=== PATIENT | female | born 1990 | race Caucasian/White ===

== ENCOUNTER 2018-11-09 20:10 | Emergency (ER) | payer SELFPAY ==
[2018-11-09] MEDS ORDERED: HYDROCODONE/ACETAMINOPHEN 5-325 MG (6 TAB/ER DISP) PO PRN (23:27)
[2018-11-09] MEDS ORDERED: PENICILLIN V POTASSIUM 500 MG TABLET PO ONE (23:27)
--- NOTE | 2018-11-09 23:29 | ER Document Report ---
HPI - HPI Patient complains to provider of: Dental pain Time Seen by Provider: 11/09/18 23:21 Onset/Duration: Persistent Quality of pain: Achy Pain Level: 5 Context: Patient complains of dental pain from a broken tooth for the past 2 weeks. Patient denies any fever or facial swelling. Associated Symptoms: Other - Dental pain. denies: Fever Exacerbated by: Denies Relieved by: Denies Similar symptoms previously: Yes Recently seen / treated by doctor: No - ROS ROS below otherwise negative: Yes Systems Reviewed and Negative: Yes All other systems reviewed and negative - CONSTITUTIONAL Constitutional: DENIES: Fever, Chills - EENT Notes: Toothache - GASTROINTESTINAL Gastrointestinal: DENIES: Nausea, Patient vomiting - REPRODUCTIVE Reproductive: DENIES: : - MUSCULOSKELETAL Musculoskeletal: DENIES: Back Pain, Neck Pain - DERM Skin Color: Normal Skin Problems: None Past Medical History - General Information source: Patient - Social History Smoking Status: Never Smoker Frequency of alcohol use: None Drug Abuse: None Occupation: Call center Family History: Reviewed & Not Pertinent Patient has suicidal ideation: No Patient has homicidal ideation: No - Medical History Medical History: Negative Renal/ Medical History: Denies: Hx Peritoneal Dialysis Surgical Hx: Negative Vertical Provider Document - CONSTITUTIONAL Agree With Documented VS: Yes Exam Limitations: No Limitations General Appearance: WD/WN, No Apparent Distress - INFECTION CONTROL TRAVEL OUTSIDE OF THE [place] IN LAST 30 DAYS: No - HEENT HEENT: Atraumatic, Normocephalic Mouth Diagram: 1 - Dental fracture, tenderness, no gingival abscess, no trismus - NECK Neck: Normal Inspection, Supple. negative: Lymphadenopathy-Left, Lymphadenopathy-Right - RESPIRATORY Respiratory: Breath Sounds Normal, No Respiratory Distress - CARDIOVASCULAR Cardiovascular: Regular Rate, Regular Rhythm - BACK Back: Normal Inspection - MUSCULOSKELETAL/EXTREMETIES Musculoskeletal/Extremeties: MAEW - NEURO Level of Consciousness: Awake, Alert, Appropriate Motor/Sensory: No Motor Deficit - DERM Integumentary: Warm, Dry, No Rash Course - Vital Signs Vital signs: Temp Pulse Resp BP Pulse Ox 98.4 F 69 16 129/87 H 100 11/09/18 20:24 11/09/18 20:24 11/09/18 20:24 11/09/18 20:24 11/09/18 20:24 Discharge - Discharge Clinical Impression: Toothache Condition: Stable Disposition: HOME, SELF-CARE Instructions: Dentist, Oral Narcotic Medication ([facility]), Penicillin V K ([facility]), Toothache ([facility]) Additional Instructions: Return immediately for any new or worsening symptoms Followup with a dental care provider, call tomorrow to make a followup appointment Prescriptions: Naproxen [Naprosyn 250 Nmg Tablet] 1 tab PO BID #14 tablet Penicillin V Potassium [Penicillin Vk 500 mg Tablet] 500 mg PO BID #20 tablet Referrals: [facility] [Provider Group] - Follow up as needed
[2018-11-09 23:41] VITALS: BP 119/88
== END 2018-11-09 23:43 | disposition home or self-care (01) ==
LOC: ER 20:10
DX: K08.89 Other specified disorders of teeth and supporting structures (principal)
CPT/HCPCS: 99282

== ENCOUNTER 2019-05-07 17:59 | Emergency (ER) | payer SELFPAY ==
[2019-05-07] MEDS ORDERED: DICYCLOMINE HCL INJ 20 MG/2 ML AMPULE IM ONE (18:30)
[2019-05-07] MEDS ORDERED: ONDANSETRON 4 MG TAB.RAPDIS PO ONE (18:30)
--- NOTE | 2019-05-07 18:33 | ER Document Report ---
ED Medical Screen (RME) - General Chief Complaint: Abdominal Cramping Stated Complaint: CHEST PAIN Time Seen by Provider: 05/07/19 18:23 Notes: Patient is a 28-year-old female who presents to the emergency department with a chief complaint of chest pain and abdominal pain. Patient states on Wednesday she developed chest pain that is located in the center of her chest. She reports that this is sharp in nature. Patient reports she does have a history of the same type of pain but this episode is not as bad. Patient reports nothing makes the pain better or worse. Patient reports nausea without vomiting or diarrhea. Patient reports increased urinary frequency. Patient denies vaginal bleeding or discharge. Patient reports some left lower back pain. Patient also reports left rib pain. Patient reports the abdominal cramping sometimes will be on the right and then sometimes will be on the left and is very nonspecific. TRAVEL OUTSIDE OF THE [place] IN LAST 30 DAYS: No - Related Data Allergies/Adverse Reactions: No Known Allergies Allergy (Verified 05/07/19 18:00) Past Medical History Renal/ Medical History: Denies: Hx Peritoneal Dialysis Physical Exam - Vital signs Vitals: Temp Pulse Resp BP Pulse Ox 99.1 F 60 18 130/84 H 100 05/07/19 18:17 05/07/19 18:17 05/07/19 18:17 05/07/19 18:17 05/07/19 18:17 Interpretation: Normal - Respiratory Respiratory status: No respiratory distress Chest status: Tender - Reproducible chest wall tenderness Breath sounds: Normal Chest palpation: Normal - Cardiovascular Rhythm: Regular Heart sounds: Normal auscultation, S2 appreciated - Abdominal Inspection: Normal Distension: No distension Bowel sounds: Normal Tenderness: Nontender Organomegaly: No organomegaly Course - Re-evaluation Re-evalutation: 05/07/19 18:32 I have greeted and performed a rapid initial assessment of this patient. A comprehensive ED assessment and evaluation of the patient, analysis of test results and completion of the medical decision making process will be conducted by additional ED providers. - Vital Signs Vital signs: Temp Pulse Resp BP Pulse Ox 99.1 F 60 18 130/84 H 100 05/07/19 18:17 05/07/19 18:17 05/07/19 18:17 05/07/19 18:17 05/07/19 18:17
[2019-05-07 18:52] LABS: ABSOLUTE EOSINOPHILS # (AUTO) 0.1 10^3/uL (0.0-0.6); ABSOLUTE LYMPHOCYTES (AUTO) 2.8 10^3/uL (0.5-4.7); ABSOLUTE MONOCYTES (AUTO) 0.5 10^3/uL (0.1-1.4); ABSOLUTE NEUT (AUTO) 2.7 10^3/uL (1.7-8.2); BASOPHILS % (AUTO) 0.4 % (0-2); EOSINOPHILS % (AUTO) 0.8 % (0-6); HEMATOCRIT 35.7 % (36.0-47.0); LYMPHOCYTES % (AUTO) 46.2 % (13-45); MEAN CORPUSCULAR HEMOGLOBIN 26.4 pg (27.0-33.4); MEAN CORPUSCULAR HGB CONC 33.5 g/dL (32.0-36.0); MEAN CORPUSCULAR VOLUME 79 fl (80-97); MONOCYTES % (AUTO) 7.8 % (3-13); PLATELET COUNT 156 10^3/uL (150-450); RED BLOOD COUNT 4.54 10^6/uL (3.72-5.28); RED CELL DISTRIBUTION WIDTH 15.9 % (11.5-14.0); SEGMENTED NEUTROPHILS % (AUTO) 44.8 % (42-78); TOTAL CELLS COUNTED % (AUTO) 100 %
[2019-05-07 19:00] LABS: APPEARANCE,URINE SLIGHTLY-CLOUDY; BILIRUBIN,URINE NEGATIVE (NEGATIVE); COLOR,URINE YELLOW; GLUCOSE, URINE NEGATIVE (NEGATIVE); KETONES,URINE NEGATIVE (NEGATIVE); LEUKOCYTE ESTERASE,URINE NEGATIVE (NEGATIVE); NITRITE,URINE NEGATIVE (NEGATIVE); PROTEIN,URINE NEGATIVE (NEGATIVE); URINE SPECIFIC GRAVITY 1.016
--- NOTE | 2019-05-07 19:01 | ER Document Report ---
ED General - General Chief Complaint: Abdominal Cramping Stated Complaint: CHEST PAIN Time Seen by Provider: 05/07/19 18:23 Notes: 28-year-old female presents with abdominal pain epigastric radiating to the chest better with food intermittent nausea and 3+ home tests. She is 2 weeks late for her.. She does not believe in the store-bought ones even though she has 3+. TRAVEL OUTSIDE OF THE [place] IN LAST 30 DAYS: No - Related Data Allergies/Adverse Reactions: No Known Allergies Allergy (Verified 05/07/19 18:00) Past Medical History - Social History Smoking Status: Never Smoker Family History: Reviewed & Not Pertinent Renal/ Medical History: Denies: Hx Peritoneal Dialysis Review of Systems - Review of Systems Notes: REVIEW OF SYSTEMS GEN: Denies fever, chills, weight loss ENT: Denies sore throat, nasal discharge, ear pain EYES: Denies blurry vision, eye pain, discharge CV: Denies chest pain, palpitations, edema RESP: Denies cough, shortness of breath, wheezing GI: See HPI MSK: Denies joint pain/swelling, edema, SKIN: Denies rash, skin lesions LYMPH: Denies swollen glands/lymph nodes NEURO: Denies headache, focal weakness or numbness, dizziness PSYCH: Denies depression, suicidal or homicidal ideation PHYSICAL EXAMINATION General: No acute distress, well-nourished Head: Atraumatic, normocephalic ENT: Mouth normal, oropharynx moist, no exudates or tonsillar enlargement Eyes: Conjunctiva normal, pupils equal, lids normal Neck: No JVD, supple, no guarding CVS: Normal rate, regular rhythm, no murmurs Resp: No resp distress, equal and normal breath sounds bilaterally GI: Nondistended, soft, no tenderness to palpation, no rebound or guarding Ext: No deformities, no edema, normal range of motion in upper and lower ext Back: No CVA or midline TTP Skin: No rash, warm Lymphatic: No lymphadeopathy noted Neuro: Awake, alert. Face symmetric. GCS 15. Physical Exam - Vital signs Vitals: Temp Pulse Resp BP Pulse Ox 99.1 F 60 18 130/84 H 100 05/07/19 18:17 05/07/19 18:17 05/07/19 18:17 05/07/19 18:17 05/07/19 18:17 Course - Vital Signs Vital signs: Temp Pulse Resp BP Pulse Ox 99.1 F 60 18 130/84 H 100 05/07/19 18:17 05/07/19 18:17 05/07/19 18:17 05/07/19 18:17 05/07/19 18:17 05/07/19 18:58 Mild epigastric pain in a patient with missed. Very likely GERD/morning s ickness/nausea vomiting in . Her test here is positive, her abdominal exam is benign her labs are normal. I will start her on vitamins, Pepcid, and she will follow-up with [facility]. I doubt that she has pancreatitis serious liver disease or any chest or pulmonary pathology. I have discussed with the patient there likely diagnosis, aftercare plan, follow-up plans and my usual and customary return precautions. They verbalized understanding of this. - Laboratory Result Diagrams: 05/07/19 18:43 05/07/19 18:43 Laboratory results interpreted by me: 05/07/19 05/07/19 18:43 18:43 Hct 35.7 L MCV 79 L MCH 26.4 L RDW 15.9 H Lymphocytes % 46.2 H Urine HCG, Qual POSITIVE H Discharge - Discharge Clinical Impression: Gastroesophageal reflux Qualifiers: Esophagitis presence: without esophagitis Qualified Code(s): K21.9 - Gastro-e sophageal reflux disease without esophagitis Qualifiers: Weeks of gestation: unspecified Qualified Code(s): Z34.90 - Encounter for supervision of normal , unspecified, unspecified trimester Condition: Good Disposition: HOME, SELF-CARE Instructions: ([facility]) Prescriptions: Famotidine [Pepcid] 20 mg PO BID #30 tablet Referrals: Gynecology [Provider Group] - Follow up as needed
--- NOTE | 2019-05-07 19:03 | RADIOLOGY REPORT (SQ) ---
EXAM DESCRIPTION: CHEST 2 VIEWS COMPLETED DATE/TIME: 05/07/2019 6:54 pm REASON FOR STUDY: chest pain COMPARISON: None. EXAM PARAMETERS: NUMBER OF VIEWS: two views TECHNIQUE: Digital Frontal and Lateral radiographic views of the chest acquired. RADIATION DOSE: NA LIMITATIONS: none FINDINGS: LUNGS AND PLEURA: No opacities, masses or pneumothorax. No pleural effusion. MEDIASTINUM AND HILAR STRUCTURES: No masses or contour abnormalities. HEART AND VASCULAR STRUCTURES: Heart normal size. No evidence for failure. BONES: No acute findings. HARDWARE: None in the chest. OTHER: No other significant finding. IMPRESSION: NO ACUTE RADIOGRAPHIC FINDING IN THE CHEST. TECHNICAL DOCUMENTATION: JOB ID: [id number] [id number] 2010 [employer]- All Rights Reserved Reading location - IP/workstation name: [email or web address]
[2019-05-07 19:06] LABS: ALBUMIN 3.9 g/dL (3.5-5.0); ALKALINE PHOSPHATASE 55 U/L (38-126); ANION GAP 8 (5-19); ASPARTATE AMINO TRANSFERASE 16 U/L (14-36); BILIRUBIN,DIRECT 0.1 mg/dL (0.0-0.4); BILIRUBIN,TOTAL 0.2 mg/dL (0.2-1.3); BLOOD UREA NITROGEN 8 mg/dL (7-20); CALCIUM 8.9 mg/dL (8.4-10.2); CARBON DIOXIDE 25 mmol/L (22-30); CHLORIDE 103 mmol/L (98-107); GLUCOSE 100 mg/dL (75-110); POTASSIUM 4.4 mmol/L (3.6-5.0); TOTAL PROTEIN 7.2 g/dL (6.3-8.2)
[2019-05-07 20:36] VITALS: BP 120/86
--- NOTE | 2019-05-08 00:27 | EKG REPORT ---
SEVERITY:- NORMAL ECG - SINUS RHYTHM : Confirmed by: Birdie Hernandez 08-May-2019 00:27:11
== END 2019-05-07 20:37 | disposition home or self-care (01) ==
LOC: ER 17:59
DX: O99.619 Diseases of the digestive system complicating pregnancy, unspecified trimester (principal); K21.9 Gastro-esophageal reflux disease without esophagitis; O26.899 Other specified pregnancy related conditions, unspecified trimester; R10.9 Unspecified abdominal pain; R07.9 Chest pain, unspecified; R10.13 Epigastric pain; R11.0 Nausea; Z3A.00 Weeks of gestation of pregnancy not specified
CPT/HCPCS: 93005; 36415; 83690; 85025; 81025; 80053; 81001; 84484; 71046; 93010; J0500; S0119; 96372; 99284

== ENCOUNTER → 2019-05-30 | Outpatient (CLI) | payer MEDICAID ==
--- NOTE | 2019-05-30 13:43 | RADIOLOGY REPORT (SQ) ---
EXAM DESCRIPTION: U/S [id number] TRNABD 1GES W/ODOP COMPLETED DATE/TIME: 05/30/2019 1:32 pm REASON FOR STUDY: Z34.01 ENCNTR FOR SUPRVSN OF NORMAL FIRST PREG, FIRST TRIMESTER Z34.01 ENCNTR FOR SUPRVSN OF NORMAL FIRST PREG, FIRST TRIMES COMPARISON: None. TECHNIQUE: Transvaginal and transabdominal static and realtime grayscale images acquired of the pelv is. Additional selected spectral and color Doppler images recorded. All images stored on PACs. CLINICAL AGE: 8 weeks 6 days. bHCG: Not available. LIMITATIONS: None. FINDINGS: UTERUS: No masses. No anomalies. GESTATIONAL SAC: Normal shape. YOLK SAC: No. POLE: None present. RIGHT ADNEXA: Normal ovary with normal vascular flow. No adnexal free fluid. No adnexal masses. LEFT ADNEXA: Normal ovary with normal vascular flow. No adnexal free fluid. No adnexal masses. FREE FLUID: None. OTHER: No other significant finding. IMPRESSION: POSSIBLE EARLY INTRAUTERINE . BHCG LEVEL NOT AVAILABLE FOR CORRELATION WITH US FINDINGS. CONSIDER F/U BHCG AND/OR ULTRASOUND FOR VERIFICATION AND TO EXCLUDE ECTOPIC . Trimester of : First trimester - 0 to 13 weeks. TECHNICAL DOCUMENTATION: JOB ID: [id number] [employer]- All Rights Reserved Reading location - IP/workstation name: [email or web address]
== END ==
LOC: RAD 12:29
PROVIDERS: ATTEND Midwife
DX: Z34.01 Encounter for supervision of normal first pregnancy, first trimester (principal)
CPT/HCPCS: 76801

== ENCOUNTER 2019-06-10 15:12 | Emergency (ER) | payer MEDICAID ==
--- NOTE | 2019-06-10 15:23 | ER Document Report ---
ED Medical Screen (RME) - General Chief Complaint: Vaginal Bleeding Stated Complaint: VAGINAL BLEEDING/ Time Seen by Provider: 06/10/19 15:17 Primary Care Provider: SHANITA GRIMES CNM [Primary Care Provider] - Follow up as needed Mode of Arrival: Ambulatory Information source: Patient Notes: This 28-year-old female G1, P0 approximately 5 weeks presents emergency department after she noticed blood when wiping prior to arrival. Denies trauma. Reports some abdominal cramping on the right side but no cramping at this time. Denies fever vomiting diarrhea. Patient reports she had an ultrasound [facility]. I have greeted and performed a rapid initial assessment of this patient. A comprehensive ED assessment and evaluation of the patient, analysis of test results and completion of the medical decision making process will be conducted by additional ED providers. Dictation of this chart was performed using voice recognition software; therefore, there may be some unintended grammatical errors. TRAVEL OUTSIDE OF THE [place] IN LAST 30 DAYS: No - Related Data Allergies/Adverse Reactions: No Known Allergies Allergy (Verified 05/07/19 18:00) Past Medical History Renal/ Medical History: Denies: Hx Peritoneal Dialysis Physical Exam - Vital signs Vitals: Temp Pulse Resp BP Pulse Ox 98 F 78 14 135/84 H 100 06/10/19 15:19 06/10/19 15:19 06/10/19 15:19 06/10/19 15:19 06/10/19 15:19 Course - Vital Signs Vital signs: Temp Pulse Resp BP Pulse Ox 98 F 78 14 135/84 H 100 06/10/19 15:19 06/10/19 15:19 06/10/19 15:19 06/10/19 15:19 06/10/19 15:19 Doctor's Discharge - Discharge Referrals: SHANITA GRIMES CNM [Primary Care Provider] - Follow up as needed
[2019-06-10 16:01] LABS: ABSOLUTE BASOPHILS # (AUTO) 0.1 10^3/uL (0.0-0.2); ABSOLUTE EOSINOPHILS # (AUTO) 0.1 10^3/uL (0.0-0.6); ABSOLUTE LYMPHOCYTES (AUTO) 2.7 10^3/uL (0.5-4.7); ABSOLUTE MONOCYTES (AUTO) 0.5 10^3/uL (0.1-1.4); ABSOLUTE NEUT (AUTO) 1.8 10^3/uL (1.7-8.2); BASOPHILS % (AUTO) 1.1 % (0-2); EOSINOPHILS % (AUTO) 1.8 % (0-6); HEMATOCRIT 36.6 % (36.0-47.0); HEMOGLOBIN 12.2 g/dL (12.0-15.5); LYMPHOCYTES % (AUTO) 52.3 % (13-45); MEAN CORPUSCULAR HEMOGLOBIN 26.5 pg (27.0-33.4); MEAN CORPUSCULAR HGB CONC 33.5 g/dL (32.0-36.0); MEAN CORPUSCULAR VOLUME 79 fl (80-97); MONOCYTES % (AUTO) 9.9 % (3-13); PLATELET COUNT 142 10^3/uL (150-450); RED BLOOD COUNT 4.61 10^6/uL (3.72-5.28); RED CELL DISTRIBUTION WIDTH 15.7 % (11.5-14.0); SEGMENTED NEUTROPHILS % (AUTO) 34.9 % (42-78); TOTAL CELLS COUNTED % (AUTO) 100 %; WHITE BLOOD COUNT 5.1 10^3/uL (4.0-10.5)
[2019-06-10 16:11] LABS: AMORPHOUS SEDIMENT,URINE TRACE /HPF; APPEARANCE,URINE TURBID; BILIRUBIN,URINE NEGATIVE (NEGATIVE); CALCIUM OXALATE CRYSTALS,URINE MANY /HPF; COLOR,URINE AMBER; GLUCOSE, URINE NEGATIVE (NEGATIVE); KETONES,URINE NEGATIVE (NEGATIVE); LEUKOCYTE ESTERASE,URINE MODERATE (NEGATIVE); NITRITE,URINE NEGATIVE (NEGATIVE); PROTEIN,URINE 100 mg/dL (NEGATIVE); URINE SPECIFIC GRAVITY 1.027
[2019-06-10 16:22] LABS: ALBUMIN 4.2 g/dL (3.5-5.0); ALKALINE PHOSPHATASE 66 U/L (38-126); ANION GAP 9 (5-19); ASPARTATE AMINO TRANSFERASE 19 U/L (14-36); BILIRUBIN,TOTAL 0.3 mg/dL (0.2-1.3); BLOOD UREA NITROGEN 8 mg/dL (7-20); CALCIUM 9.6 mg/dL (8.4-10.2); CARBON DIOXIDE 25 mmol/L (22-30); CHLORIDE 104 mmol/L (98-107); GLUCOSE 102 mg/dL (75-110); POTASSIUM 3.9 mmol/L (3.6-5.0)
--- NOTE | 2019-06-10 16:23 | RADIOLOGY REPORT (SQ) ---
EXAM DESCRIPTION: U/S OB TRANSVAGINAL W/O DOP COMPLETED DATE/TIME: 06/10/2019 4:07 pm REASON FOR STUDY: PREG BLEEDING ABD CRAMP COMPARISON: 05/30/2019 TECHNIQUE: Transvaginal static and realtime grayscale images acquired of the pelvis. Additional pearl cted spectral and color Doppler images recorded. All images stored on PACs. bHCG: Pending. CLINICAL DATES: 10 weeks 4 days LIMITATIONS: None. FINDINGS: There is an intrauterine measuring 6 weeks 0 days, no yolk sac or heart to chery are identified. SUBCHORIONIC BLEED: No. SIZE OF BLEED: Not applicable. UTERUS: No masses. No anomalies. CERVICAL LENGTH: 2.8 cm Fluid is noted in the cervical canal. RIGHT ADNEXA: Normal ovary with normal vascular flow. No adnexal free fluid. No adnexal masses. LEFT ADNEXA: Normal ovary with normal vascular flow. No adnexal free fluid. No adnexal masses. FREE FLUID: None. OTHER: No other significant finding. IMPRESSION: There is an intrauterine measuring 6 weeks 0 days, no yolk sac or heart tones are identified suggesting demise.Fluid is noted in the cervical canal. Trimester of : First trimester - 0 to 13 weeks. TECHNICAL DOCUMENTATION: JOB ID: [id number] [place]-72 2010 [employer]- All Rights Reserved rev Reading location - IP/workstation name: [email or web address]
--- NOTE | 2019-06-10 16:33 | ER Document Report ---
ED General - General Chief Complaint: Vaginal Bleeding Stated Complaint: VAGINAL BLEEDING/ Time Seen by Provider: 06/10/19 15:17 Primary Care Provider: SULEIMAN MILLAN MD [ACTIVE STAFF] - 06/12/19 (CALL THE OFFICE AND LET THEM KNOW THAT Dr. MILLAN WANTS TO SEE YOU WEDNESDAY. ) Mode of Arrival: Ambulatory TRAVEL OUTSIDE OF THE [place] IN LAST 30 DAYS: No - HPI Notes: 28-year-old female to the emergency department with complaints of lower abdomi nal cramping and vaginal bleeding that began yesterday. She states that she is about 5 weeks . She states that [facility] and [facility]. She states the ultrasound showed a sac but no nicol IUP. She states that at that time her beta quant was 4000. She was told by "nurse there" that they would watch her over the weekend and then see her in follow-up next week. She states that she got concerned when she began to bleed today. This is her first . She denies any nausea, vomiting, fevers or any other complaints. - Related Data Allergies/Adverse Reactions: No Known Allergies Allergy (Verified 05/07/19 18:00) Past Medical History - General Information source: Patient Last Menstrual Period: 03/28/19 - Social History Smoking Status: Never Smoker Chew tobacco use (# tins/day): No Frequency of alcohol use: Rare Drug Abuse: None Family History: Reviewed & Not Pertinent Patient has suicidal ideation: No Patient has homicidal ideation: No Renal/ Medical History: Denies: Hx Peritoneal Dialysis Review of Systems - Review of Systems Constitutional: denies: Chills, Fever EENT: No symptoms reported Cardiovascular: denies: Chest pain, Palpitations, Heart racing, Orthopnea, Dyspnea, Syncope, Dizziness, Lightheaded Respiratory: denies: Cough, Short of breath Gastrointestinal: Abdominal pain. denies: Diarrhea, Nausea, Vomiting Genitourinary: No symptoms reported Female Genitourinary: , Vaginal bleeding Musculoskeletal: No symptoms reported Skin: No symptoms reported -: Yes All other systems reviewed and negative Physical Exam - Vital signs Vitals: Temp Pulse Resp BP Pulse Ox 98 F 78 14 135/84 H 100 06/10/19 15:19 06/10/19 15:19 06/10/19 15:19 06/10/19 15:19 06/10/19 15:19 Interpretation: Normal - General General appearance: Appears well, Alert In distress: None - HEENT Head: Normocephalic, Atraumatic Eyes: Normal Pupils: PERRL - Respiratory Respiratory status: No respiratory distress Chest status: Nontender Breath sounds: Normal Chest palpation: Normal - Cardiovascular Rhythm: Regular Heart sounds: Normal auscultation Murmur: No - Abdominal Inspection: Normal Distension: No distension Bowel sounds: Normal Tenderness: Nontender. No: Tender, McBurney's point, Lomax's sign, Guarding, Rebound Organomegaly: No organomegaly - Genitourinary External exam: Normal Speculum exam: Cervix closed Vaginal bleeding: Moderate Bimanuel exam: Normal. No: Cervical motion tender, Bladder/Urethral tender, Adnexal mass, Adnexal tenderness - Back Back: Normal, Nontender. No: CVA tenderness - Neurological Neuro grossly intact: Yes Cognition: Normal Orientation: AAOx4 Velma Coma Scale Eye Opening: Spontaneous Velma Coma Scale Verbal: Oriented Velma Coma Scale Motor: Obeys Commands [place] Coma Scale Total: 15 Speech: Normal Motor strength normal: LUE, RUE, LLE, RLE Sensory: Normal - Psychological Associated symptoms: Normal affect, Normal mood - Skin Skin Temperature: Warm Skin Moisture: Dry Skin Color: Normal Course - Re-evaluation Re-evalutation: Obstetrics Ultrasound 06/10/19 15:21 IMPRESSION: There is an intrauterine measuring 6 weeks 0 days, no yolk sac or heart tones are identified suggesting demise.Fluid is noted in the cervical canal. Trimester of : First trimester - 0 to 13 weeks. Noted ultrasound result. Called OB on-call Dr. Millan and we discussed radha corbett with the downward trending beta quant based on patient's history. We discussed whether or not Cytotec would be appropriate for the patient right now. Dr. Millan would like to wait to see if the patient will progress naturally and to see her in the office on Wednesday. I discussed this plan with the patient and she agrees. I have asked her to call the office on Wednesday without fail. I will write her for a work note so that she can make that appointment. I have encouraged her to return if she has any worsening heavy bleeding such as soaking more than 1 pad for several hours, any syncope, any chest pain, any shortness of breath. She voices understanding and agrees with the plan. - Vital Signs Vital signs: Temp Pulse Resp BP Pulse Ox 97.7 F 58 L 16 125/78 99 06/10/19 18:12 06/10/19 18:12 06/10/19 18:12 06/10/19 18:12 06/10/19 18:12 - Laboratory Result Diagrams: 06/10/19 15:39 06/10/19 15:39 Laboratory results interpreted by me: 06/10/19 06/10/19 06/10/19 15:39 15:39 15:39 MCV 79 L MCH 26.5 L RDW 15.7 H Plt Count 142 L Lymph % (Auto) 52.3 H Seg Neutrophils % 34.9 L Beta HCG, Quant 2923.40 H Urine Protein 100 H Urine Blood LARGE H Urine Urobilinogen 4.0 H Ur Leukocyte Esterase MODERATE H Urine Ascorbic Acid 40 H - Diagnostic Test Radiology reviewed: Image reviewed, Reports reviewed Discharge - Discharge Clinical Impression: Missed , Vaginal bleeding, Pelvic pain Condition: Stable Disposition: HOME, SELF-CARE Instructions: Miscarriage ([facility]) Additional Instructions: FOLLOW UP WITH DR. MILLAN WITHOUT FAIL ON WEDNESDAY. TAKE TYLENOL FOR PAIN. R ETURN IF WORSENING SYMPTOMS SUCH BLEEDING THROUGH MORE THAN ON PAD EVERY HOUR FOR SEVERAL HOURS, PASSING OUT, INTRACTABLE VOMITING, OR ANY OTHER CONCERNS. Forms: Return to Work Referrals: SULEIMAN MILLAN MD [ACTIVE STAFF] - 06/12/19 (CALL THE OFFICE AND LET THEM KNOW THAT Dr. MILLAN WANTS TO SEE YOU WEDNESDAY. )
[2019-06-10 18:25] VITALS: BP 125/78
== END 2019-06-10 18:26 | disposition home or self-care (01) ==
LOC: ER 15:12
DX: O02.1 Missed abortion (principal); R10.2 Pelvic and perineal pain
CPT/HCPCS: 36415; 76817; 80053; 81001; 84702; 85025; 86900; 86901

== ENCOUNTER 2019-06-11 01:10 | Emergency (ER) | payer MEDICAID ==
[2019-06-11] MEDS ORDERED: HYDROMORPHONE HCL INJ/PF 2 MG/ML AMPULE IV PRN (02:15)
--- NOTE | 2019-06-11 02:26 | ER Document Report ---
ED General - General Chief Complaint: Vaginal Bleeding Stated Complaint: VAGINAL BLEEDING Time Seen by Provider: 06/11/19 01:53 Primary Care Provider: SHEBA FRANKLIN MD [Primary Care Provider] - Follow up as needed Information source: Patient Notes: Patient is a G1, P0, who represents with vaginal bleeding. She was here approximately 10 hours ago and was diagnosed with a missed . She was instructed to return here at once if the bleeding got worse and her vaginal bleeding has gotten worse which is why she is here now. Her beta quant went down from 4000 to approximately 2800. She has crampy midline pelvic pain. No other complaints. No urinary complaints. TRAVEL OUTSIDE OF THE [place] IN LAST 30 DAYS: No - Related Data Allergies/Adverse Reactions: No Known Allergies Allergy (Verified 05/07/19 18:00) Past Medical History - General Last Menstrual Period: mar 28 - Social History Smoking Status: Never Smoker Chew tobacco use (# tins/day): No Frequency of alcohol use: None Drug Abuse: None Family History: Reviewed & Not Pertinent Patient has suicidal ideation: No Patient has homicidal ideation: No Renal/ Medical History: Denies: Hx Peritoneal Dialysis Review of Systems - Review of Systems Constitutional: denies: Chills, Fever -: Yes All other systems reviewed and negative Physical Exam - Vital signs Vitals: Temp Pulse Resp BP Pulse Ox 97.9 F 69 16 123/74 99 06/11/19 01:17 06/11/19 01:17 06/11/19 01:17 06/11/19 01:17 06/11/19 01:17 - General General appearance: Appears well, Alert - HEENT Head: Normocephalic, Atraumatic Eyes: Normal Pupils: PERRL - Respiratory Respiratory status: No respiratory distress Chest status: Nontender Breath sounds: Normal Chest palpation: Normal - Cardiovascular Rhythm: Regular Heart sounds: Normal auscultation Murmur: No - Abdominal Inspection: Normal Distension: No distension Bowel sounds: Normal Tenderness: Tender - pelvic. No: Guarding, Rebound Organomegaly: No organomegaly - Genitourinary External exam: Normal Vaginal bleeding: Mild - Back Back: Normal, Nontender - Extremities General upper extremity: Normal inspection, Nontender, Normal color, Normal ROM, Normal temperature General lower extremity: Normal inspection, Nontender, Normal color, Normal ROM, Normal temperature, Normal weight bearing. No: Ubaldo's sign - Neurological Neuro grossly intact: Yes Cognition: Normal Orientation: AAOx4 [place] Coma Scale Eye Opening: Spontaneous Velma Coma Scale Verbal: Oriented Velma Coma Scale Motor: Obeys Commands Vel[place] Coma Scale Total: 15 Speech: Normal Motor strength normal: LUE, RUE, LLE, RLE Sensory: Normal - Psychological Associated symptoms: Normal affect, Normal mood - Skin Skin Temperature: Warm Skin Moisture: Dry Skin Color: Normal Course - Re-evaluation Re-evalutation: 06/11/19 05:03 Patient repeat labs show a stable hemoglobin level. Patient's vaginal bleeding has slowed down. Will discharge home with follow-up with [facility] tomorrow without fail. She will return at once if worse or new symptoms. - Vital Signs Vital signs: Temp Pulse Resp BP Pulse Ox 97.9 F 70 16 128/78 H 99 06/11/19 01:17 06/11/19 01:59 06/11/19 01:59 06/11/19 01:59 06/11/19 01:17 - Laboratory Result Diagrams: 06/11/19 02:30 Laboratory results interpreted by me: 06/11/19 02:30 Hct 35.5 L MCH 26.9 L RDW 15.4 H Plt Count 148 L Lymph % (Auto) 57.6 H Absolute Neuts (auto) 1.4 L Seg Neutrophils % 29.5 L Discharge - Discharge Clinical Impression: Vaginal bleeding, Missed Condition: Stable Disposition: HOME, SELF-CARE Instructions: Vaginal Bleeding ([facility]) Additional Instructions: See your [facility] as previously scheduled tomorrow on Wednesday without fail. Return at once if worse or new symptoms. Referrals: SHEBA FRANKLIN MD [Primary Care Provider] - Follow up as needed
[2019-06-11 02:46] LABS: ABSOLUTE BASOPHILS # (AUTO) 0.1 10^3/uL (0.0-0.2); ABSOLUTE EOSINOPHILS # (AUTO) 0.1 10^3/uL (0.0-0.6); ABSOLUTE LYMPHOCYTES (AUTO) 2.7 10^3/uL (0.5-4.7); ABSOLUTE MONOCYTES (AUTO) 0.5 10^3/uL (0.1-1.4); ABSOLUTE NEUT (AUTO) 1.4 10^3/uL (1.7-8.2); BASOPHILS % (AUTO) 1.2 % (0-2); EOSINOPHILS % (AUTO) 1.7 % (0-6); HEMATOCRIT 35.5 % (36.0-47.0); LYMPHOCYTES % (AUTO) 57.6 % (13-45); MEAN CORPUSCULAR HEMOGLOBIN 26.9 pg (27.0-33.4); MEAN CORPUSCULAR HGB CONC 33.7 g/dL (32.0-36.0); MEAN CORPUSCULAR VOLUME 80 fl (80-97); PLATELET COUNT 148 10^3/uL (150-450); RED BLOOD COUNT 4.45 10^6/uL (3.72-5.28); RED CELL DISTRIBUTION WIDTH 15.4 % (11.5-14.0); SEGMENTED NEUTROPHILS % (AUTO) 29.5 % (42-78); TOTAL CELLS COUNTED % (AUTO) 100 %; WHITE BLOOD COUNT 4.7 10^3/uL (4.0-10.5)
[2019-06-11 03:01] LABS: INTERNATIONAL RATION (INR) 1.07; PROTHROMBIN TIME 13.9 SEC (11.4-15.4)
[2019-06-11 05:31] VITALS: BP 134/86
== END 2019-06-11 05:50 | disposition home or self-care (01) ==
LOC: ER 01:10
DX: O02.1 Missed abortion (principal); N93.9 Abnormal uterine and vaginal bleeding, unspecified; R10.2 Pelvic and perineal pain
CPT/HCPCS: 99284; 96374; 36415; 85025; 85610; J1170

== ENCOUNTER 2019-06-24 18:13 | Emergency (ER) | payer MEDICAID ==
--- NOTE | 2019-06-24 19:23 | ER Document Report ---
HPI - HPI Time Seen by Provider: 06/24/19 19:06 Notes: Patient is an otherwise healthy 28-year-old female presenting to the emergency department with multiple complaints today. Patient reports she has pain to her bilateral ears with ringing sensation. She states she cleans her ears out daily with Q-tips and she thinks she may have irritated them. She also reports abnormal vaginal discharge. Patient reports that she has had recurrent chlamydia and trichomonas. She also states that she had a miscarriage approximately 3 weeks ago. She states at that time she was 6 weeks gestation. She is a G1, P0. She denies any pelvic pain or abdominal pain. Patient has not had nausea, vomiting, diarrhea or fevers. She denies dysuria or urinary frequency. - REPRODUCTIVE Reproductive: REPORTS: : Past Medical History - General Information source: Patient - Social History Smoking Status: Never Smoker Frequency of alcohol use: None Drug Abuse: None Family History: Reviewed & Not Pertinent - Medical History Medical History: Negative Renal/ Medical History: Denies: Hx Peritoneal Dialysis Surgical Hx: Negative - Immunizations Immunizations up to date: Yes Vertical Provider Document - CONSTITUTIONAL Notes: PHYSICAL EXAMINATION: GENERAL: Well-appearing, well-nourished and in no acute distress. HEAD: Atraumatic, normocephalic. EYES: Pupils equal round and reactive to light, extraocular movements intact, conjunctiva are normal. ENT: Nares patent, oropharynx clear without exudates. Moist mucous membranes. Bilateral ear canals macerated. TMs unremarkable. NECK: Normal range of motion, supple without lymphadenopathy LUNGS: Breath sounds clear to auscultation bilaterally and equal. No wheezes rales or rhonchi. HEART: Regular rate and rhythm without murmurs ABDOMEN: Soft, nontender, nondistended abdomen. No guarding, no rebound. No masses appreciated. Female : Normal external genitalia, speculum exam reveals no cervical motion tenderness or adnexal tenderness, purulent drainage coming from the cervix that is yellowish-green in color. Musculoskeletal: Normal range of motion, no pitting or edema. No cyanosis. NEUROLOGICAL: Cranial nerves grossly intact. Normal speech, normal gait. Normal sensory, motor exams PSYCH: Normal mood, normal affect. SKIN: Warm, Dry, normal turgor, no rashes or lesions noted. - INFECTION CONTROL TRAVEL OUTSIDE OF THE [place] IN LAST 30 DAYS: No Course - Re-evaluation Re-evalutation: We will prescribe Ciprodex drops for patient's ear complaints. As for patient's vaginal discharge complaints patient does not have any cervical motion tenderness or adnexal tenderness. However she does have a lots of abnormal vaginal discharge coming from the cervix. She states she has had recurrent BV, trichomonas and chlamydia despite treatment. She states she has always just had the one-time dose of treatment and is never had prolonged treatment. I will put patient on a 2-week course of doxycycline and Flagyl and treat this as a PID considering patient has had it recurrently. Patient encouraged to please refrain from any sexual intercourse and please follow-up with the health department for retesting. Patient verbalizes understanding and agreement with plan. - Vital Signs Vital signs: Temp Pulse Resp BP Pulse Ox 97.8 F 67 18 131/79 H 99 06/24/19 18:19 10 18:19 10 18:19 06/24/19 18:19 06/24/19 18:19 Discharge - Discharge Clinical Impression: Pelvic inflammatory disease, Trichomonas vaginitis, Bacterial vaginosis, Yeast infection Urinary tract infection Qualifiers: Urinary tract infection type: site unspecified Hematuria presence: without hematuria Qualified Code(s): N39.0 - Urinary tract infection, site not specified Condition: Stable Disposition: HOME, SELF-CARE Additional Instructions: Pelvic Inflammatory Disease You have been diagnosed as having pelvic inflammatory disease (PID). This is an infection of the fallopian tubes and surrounding areas of the pelvis. Symptoms are usually pelvic pain and discharge. The infection can do permanent damage to the tubes and ovaries. It should be taken very seriously. Treatment is antibiotics, which may be given by vein or by injection if the infection seems serious. It's important that you receive all recommended medication. Condoms help prevent spread of this infection to others. Because this infection is spread sexually, it's important that your sexual partner be checked before resuming sexual relations. If a culture shows gonorrhea or chlamydia organisms, the law requires that this be reported to the health department. Call the doctor or return at once if you develop increasing fever, rash, severe pelvic pain, vaginal bleeding (other than your period), or problems with your bladder or bowels. Apply the eardrops to affected ear 3 times daily. It is imperative that you complete all the antibiotics exactly as prescribed. It is very important that you have no sexual intercourse until cleared by the health department. Follow-up with health department, call Wednesday to schedule an appointment. Prescriptions: Cephalexin [Cephalexin 500 MG Tablet] 1 tab PO BID #14 tablet Doxycycline Hyclate 100 mg PO BID #28 capsule Metronidazole [Flagyl 500 mg Tablet] 500 mg PO BID #28 tablet Referrals: [facility] [Outside] - Follow up as needed
[2019-06-24 19:55] LABS: APPEARANCE,URINE SLIGHTLY-CLOUDY; BILIRUBIN,URINE NEGATIVE (NEGATIVE); COLOR,URINE YELLOW; GLUCOSE, URINE NEGATIVE (NEGATIVE); KETONES,URINE NEGATIVE (NEGATIVE); LEUKOCYTE ESTERASE,URINE LARGE (NEGATIVE); NITRITE,URINE NEGATIVE (NEGATIVE); PROTEIN,URINE NEGATIVE (NEGATIVE); URINE SPECIFIC GRAVITY 1.017
[2019-06-24] MEDS ORDERED: CEFTRIAXONE INJ 250 MG VIAL IM ONE (20:14)
[2019-06-24] MEDS ORDERED: LIDOCAINE 1% INJ-PF (10 MG/ML) 30 ML SDV INJ ONE (20:14)
[2019-06-24] MEDS ORDERED: METRONIDAZOLE 500 MG TABLET PO ONE (20:17)
[2019-06-24] MEDS ORDERED: DOXYCYCLINE HYCLATE 100 MG TABLET PO ONE (20:17)
[2019-06-24] MEDS ORDERED: AZITHROMYCIN 250 MG TABLET PO ONE (20:18)
[2019-06-24] MEDS ORDERED: CIPROFLOXACIN HCL/DEXAMETH OTIC DROP 7.5 ML AU ONE (20:22)
[2019-06-24 20:27] LABS: BACTERIA (WET MOUNT) 4+ BACTERIA SEEN; EPITHELIALS (WET MOUNT) 4+ EPITHELIALS SEEN; RBCS (WET MOUNT) 1+ RBCS SEEN; T.VAGINALIS (WET MOUNT) TRICHOMONAS SEEN; WBCS (WET MOUNT) 1+ WBCS SEEN; YEAST (WET MOUNT) YEAST SEEN
[2019-06-24 21:34] VITALS: BP 103/80
[2019-06-24 21:53] LABS: CHLAM PCR NOT DETECTED (NOT DETECT)
== END 2019-06-24 21:35 | disposition home or self-care (01) ==
LOC: ER 18:13
DX: N73.9 Female pelvic inflammatory disease, unspecified (principal); A59.01 Trichomonal vulvovaginitis; N76.0 Acute vaginitis; B96.89 Other specified bacterial agents as the cause of diseases classified elsewhere; B37.9 Candidiasis, unspecified; N39.0 Urinary tract infection, site not specified; H92.03 Otalgia, bilateral; H93.13 Tinnitus, bilateral
CPT/HCPCS: 36415; 87210; 84702; 81001; 87491; 87591; Q0144; J3490 ×4; J0696; 96374; 96375; 99283

== ENCOUNTER 2020-03-14 14:13 | Emergency (ER) | payer SELFPAY ==
[2020-03-14 14:18] VITALS: BP 121/77
[2020-03-14] MEDS ORDERED: DIPHENHYDRAMINE HCL 50 MG CAPSULE PO ONE (15:22)
--- NOTE | 2020-03-14 15:25 | ER Document Report ---
HPI - HPI Patient complains to provider of: lip pain Time Seen by Provider: 03/14/20 15:15 Pain Level: Denies Context: This is a 29-year-old female who presented to the emergency room today stating she had pain and swelling to the left upper lip she noticed yesterday morning that there was a small area of inflammation just under the nare which has progressively gotten worse over the last 24 hours this is not perioral she has no difficulty breathing swallowing or managing saliva Associated Symptoms: None Exacerbated by: Denies Similar symptoms previously: No Recently seen / treated by doctor: No - REPRODUCTIVE Reproductive: DENIES: : Past Medical History - General Information source: Patient - Social History Smoking Status: Current Some Day Smoker Chew tobacco use (# tins/day): No Frequency of alcohol use: Occasional Drug Abuse: None Family History: Reviewed & Not Pertinent Renal/ Medical History: Denies: Hx Peritoneal Dialysis - Immunizations Immunizations up to date: Yes Vertical Provider Document - CONSTITUTIONAL Agree With Documented VS: Yes - INFECTION CONTROL TRAVEL OUTSIDE OF THE [place] IN LAST 30 DAYS: No - HEENT HEENT: Atraumatic, Conjuctival Injection, Normocephalic, PERRLA - NECK Neck: Normal Inspection - RESPIRATORY Respiratory: Breath Sounds Normal - CARDIOVASCULAR Cardiovascular: Regular Rate - GI/ABDOMEN Gastrointestinal: Abdomen Soft, Abdomen Non-Tender - REPRODUCTIVE Female Genitalia: Normal Inspection - BACK Back: Normal Inspection Course - Re-evaluation Re-evalutation: 03/14/20 15:22 Difficulty breathing no difficulty swallowing no difficulty managing saliva there is a central puncture jorge luis with 2 cm area of erythema and inflammation nonfluctuant around. - Vital Signs Vital signs: Temp Pulse Resp BP Pulse Ox 98.3 F 82 16 121/77 98 03/14/20 15:05 03/14/20 14:17 03/14/20 14:17 03/14/20 14:17 03/14/20 14:17 Discharge - Discharge Clinical Impression: Cellulitis Qualifiers: Site of cellulitis: unspecified site Qualified Code(s): L03.90 - Cellulitis, unspecified Condition: Good Disposition: HOME, SELF-CARE Instructions: Cellulitis ([facility]) Prescriptions: Diphenhydramine HCl [Benadryl 25 mg Capsule] 25 mg PO Q6 PRN #25 capsule PRN Reason: Penicillin V Potassium [Penicillin Vk 500 mg Tablet] 500 mg PO BID #20 tablet
== END 2020-03-14 15:33 | disposition home or self-care (01) ==
LOC: ER 14:13
DX: L03.90 Cellulitis, unspecified (principal); F17.200 Nicotine dependence, unspecified, uncomplicated
CPT/HCPCS: 99283

== ENCOUNTER 2020-08-27 15:58 | Emergency (ER) | payer SELFPAY ==
--- NOTE | 2020-08-27 17:14 | ER Document Report ---
ED Medical Screen (RME) - General Chief Complaint: Pain All Over Stated Complaint: BODY ACHES, WEAKNESS Time Seen by Provider: 08/27/20 17:04 TRAVEL OUTSIDE OF THE [place] IN LAST 30 DAYS: No - HPI Notes: 08/27/20 17:12 29-year-old female presents to the emergency room for sudden onset headache, body aches, cough that started yesterday. Denies any sore throat. Last menstrual cycle 08/17/2020. Denies any nausea vomiting abdominal pain. Patient states that she does work with [employer], she is unsure if she has been exposed to any positive Covid patients. States she does smoke cigars routinely. Denies any fevers but does report chills. No [id number] medications have been tried. Patient did not get the flu shot this year. She reports she is not entirely up-to-date with her childhood vaccinations, I have greeted and performed a rapid initial assessment of this patient. A comprehensive ED assessment and evaluation of the patient, analysis of test results and completion of the medical decision making process will be conducted by additional ED providers. PHYSICAL EXAMINATION: GENERAL: Well-appearing, well-nourished and in no acute distress. HEAD: Atraumatic, normocephalic. EYES: Pupils equal round extraocular movements intact, conjunctiva are normal. NECK: Normal range of motion CV: s1, s2 regular LUNGS: No respiratory distress - Related Data Allergies/Adverse Reactions: No Known Allergies Allergy (Verified 08/27/20 17:05) Past Medical History Renal/ Medical History: Denies: Hx Peritoneal Dialysis - Immunizations Immunizations up to date: Yes Physical Exam - Vital signs Vitals: Temp Pulse Resp BP Pulse Ox 98.5 F 87 20 126/70 H 99 08/27/20 16:03 08/27/20 16:03 08/27/20 16:03 08/27/20 16:03 08/27/20 16:03 Course - Vital Signs Vital signs: Temp Pulse Resp BP Pulse Ox 98.5 F 87 20 126/70 H 99 08/27/20 16:03 08/27/20 16:03 08/27/20 16:03 08/27/20 16:03 08/27/20 16:03
--- NOTE | 2020-08-27 18:25 | RADIOLOGY REPORT (SQ) ---
EXAM DESCRIPTION: CHEST SINGLE VIEW IMAGES COMPLETED DATE/TIME: 08/27/2020 6:03 pm REASON FOR STUDY: cough, body aches, ROBLES x 1d COMPARISON: 05/07/2019 EXAM PARAMETERS: NUMBER OF VIEWS: One view. TECHNIQUE: Single frontal radiographic view of the chest acquired. RADIATION DOSE: NA LIMITATIONS: None. FINDINGS: LUNGS AND PLEURA: No opacities, masses or pneumothorax. No pleural effusion. MEDIASTINUM AND HILAR STRUCTURES: No masses. Contour normal. HEART AND VASCULAR STRUCTURES: Heart normal in size. Normal vasculature. BONES: No acute findings. HARDWARE: None in the chest. OTHER: No other significant finding. IMPRESSION: 1. NO ACUTE RADIOGRAPHIC FINDING IN THE CHEST. TECHNICAL DOCUMENTATION: JOB ID: [id number] 2010 [employer]- All Rights Reserved Reading location - IP/workstation name: [email or web address]
[2020-08-27 19:15] LABS: A TYPE INFLUENZA AG NEGATIVE (NEGATIVE); B INFLUENZA AG NEGATIVE (NEGATIVE)
--- NOTE | 2020-08-27 19:46 | ER Document Report ---
ED General - General Chief Complaint: Pain All Over Stated Complaint: BODY ACHES, WEAKNESS Time Seen by Provider: 08/27/20 17:04 Primary Care Provider: SREE DÍAZ [Primary Care Provider] - Follow up as needed TRAVEL OUTSIDE OF THE [place] IN LAST 30 DAYS: No - HPI Notes: Patient is a 21-year-old female who presents emergency department for evaluation of chills, cough, body aches. Is been starting since last night. She has a headache as well. Is worsened with cough. She states her cough seem much worse than it is at baseline secondary to her smoking. She denies any anosmia. No nausea, no vomiting, no diarrhea. She denies any pain at this time. - Related Data Allergies/Adverse Reactions: No Known Allergies Allergy (Verified 08/27/20 17:05) Home Medications: None Past Medical History - General Information source: Patient - Social History Smoking Status: Current Every Day Smoker Family History: Reviewed & Not Pertinent - Unknown per patient Renal/ Medical History: Denies: Hx Peritoneal Dialysis - Immunizations Immunizations up to date: Yes Review of Systems - Review of Systems Constitutional: See HPI EENT: No symptoms reported Cardiovascular: No symptoms reported Respiratory: See HPI Gastrointestinal: No symptoms reported Genitourinary: No symptoms reported Musculoskeletal: No symptoms reported Skin: No symptoms reported Neurological/Psychological: No symptoms reported Physical Exam - Vital signs Vitals: Temp Pulse Resp BP Pulse Ox 98.5 F 87 20 126/70 H 99 08/27/20 16:03 08/27/20 16:03 08/27/20 16:03 08/27/20 16:03 08/27/20 16:03 - Notes Notes: Vital signs reviewed, please refer to chart. Head is normocephalic, atraumatic. Pupils equal round, reactive to light. Oral mucosa is moist. Pharynx without erythema or exudate. Neck is supple without meningismus. Heart is regular rate and rhythm. Lungs are clear to auscultation bilaterally. Abdomen is soft, nontender, normoactive bowel sounds throughout. Extremities without cyanosis, clubbing. Posterior calves are nontender. Peripheral pulses are equal. Skin is warm and dry. Patient is awake, alert, neurological exam is nonfocal. Course - Re-evaluation Re-evalutation: 08/27/20 19:44 Patient presents to the emergency department for evaluation. She has chills, body aches, cough, headache. She had strep screen, influenza swab, these are both found to be negative. The patient had a COVID-19 test ordered, but the patient refuses this, states she cannot quarantine admits that much work. I explained to her that whether or not she had a test pending had nothing to do as to whether or not she should quarantine, I still recommend quarantining at home for 14 days after symptom onset. She voiced understanding, but states she has no plans to do so. The patient was urged to do so, but told at least that she should try to maintain social distancing, always mask when in public, only going pelvic unnecessary, and completely avoid the immunocompromise, the elderly, the very young, and the . She voiced understanding. Otherwise, patient ask ed for a work excuse. I explained that I will write a note that says she was here, I will not write a note that states she is medically cleared to return to work, as I do not believe that she is so. She is strongly urged to reconsider position on quarantining. She is to return to the emergency department with worsening or new concerning symptoms of any sort. - Vital Signs Vital signs: Temp Pulse Resp BP Pulse Ox 98.6 F 83 18 122/78 98 08/27/20 20:06 08/27/20 20:06 08/27/20 20:06 08/27/20 20:06 08/27/20 20:06 - Laboratory Results Critical Laboratory Results Reviewed: No Critical Results - Radiology Results Critical Radiology Results Reviewed: No Critical Results Discharge - Discharge Clinical Impression: Viral illness Condition: Stable Disposition: HOME, SELF-CARE Instructions: COVID-19 Guidance for Persons Under Investigation, Viral Syndrome ([facility]) Additional Instructions: You have been advised that you should quarantine for 14 days at home. Tylenol, [id number] medications as needed for symptoms. Follow-up with your primary care provider. Return to the emergency department with worsening or new concerning symptoms of any sort. Referrals: LOCALMD,NO [Primary Care Provider] - Follow up as needed
[2020-08-27 20:07] VITALS: BP 122/78
== END 2020-08-27 20:07 | disposition home or self-care (01) ==
LOC: ER 15:58
DX: B34.9 Viral infection, unspecified (principal); M79.10 Myalgia, unspecified site; R53.1 Weakness; R51.9 Headache, unspecified; F17.200 Nicotine dependence, unspecified, uncomplicated
CPT/HCPCS: 71045; 87804; 99284

== ENCOUNTER 2020-10-06 11:26 | Emergency (ER) | payer SELFPAY ==
--- NOTE | 2020-10-06 12:06 | ER Document Report ---
Entered by MIGUELINA SIMMONS SCRIBE 10/06/20 1136 Acting as scribe for:LAY SHEA MD ED General - General Stated Complaint: BODY ACHE, HEADACHE, LEFT LEG PAIN Time Seen by Provider: 10/06/20 11:35 Primary Care Provider: SREE DÍAZ [NO SHAUN MD] - Follow up as needed Mode of Arrival: Ambulatory Information source: Patient Notes: This 29 year old female patient presents to the ED today with complaints of bilateral shoulder pain that started x2 days ago. She also notes left thigh strain for the last x3 months. 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 TRAVEL OUTSIDE OF THE [place] IN LAST 30 DAYS: No - Related Data Allergies/Adverse Reactions: No Known Allergies Allergy (Verified 10/06/20 11:40) Past Medical History - General Information source: Patient - Social History Smoking Status: Current Every Day Smoker Chew tobacco use (# tins/day): No Smoking Education Provided: No Family History: Reviewed & Not Pertinent - Unknown per patient - Immunizations Immunizations up to date: Yes Review of Systems - Review of Systems Constitutional: No symptoms reported EENT: No symptoms reported Cardiovascular: No symptoms reported Respiratory: No symptoms reported Gastrointestinal: No symptoms reported Genitourinary: No symptoms reported Female Genitourinary: No symptoms reported Musculoskeletal: See HPI, Joint pain, Muscle pain Skin: No symptoms reported Hematologic/Lymphatic: No symptoms reported Neurological/Psychological: No symptoms reported -: Yes All other systems reviewed and negative Physical Exam - Vital signs Vitals: Temp Pulse Resp BP Pulse Ox 98.1 F 74 16 136/82 H 100 10/06/20 11:29 10/06/20 11:29 10/06/20 11:29 10/06/20 11:29 10/06/20 11:29 - General General appearance: Alert In distress: None - HEENT Head: Normocephalic, Atraumatic Eyes: Normal Pupils: PERRL - Cardiovascular Rhythm: Regular Heart sounds: Normal auscultation Murmur: No - Abdominal Inspection: Normal Distension: No distension Bowel sounds: Normal Tenderness: Nontender - Abdomen soft Organomegaly: No organomegaly - Back Back: Normal, Nontender - Extremities General lower extremity: Other - There is no pain when I have the patient adduct her lower extremities against resistance. Shoulder: Tender - Tenderness to palpation of bilateral anterior shoulders over the humeral heads. No AC joint or subacromial bursae tenderness. Thigh: Other - Left anterior thigh is nontender to palpation. There is some tenderness to palpation laterally in the ligament. - Neurological Neuro grossly intact: Yes Orientation: AAOx4 Velma Coma Scale Eye Opening: Spontaneous [place] Coma Scale Verbal: Oriented [place] Coma Scale Motor: Obeys Commands [place] Coma Scale Total: 15 - Psychological Associated symptoms: Normal affect, Normal mood - Skin Skin Temperature: Warm Skin Moisture: Dry Skin Color: Normal Course - Re-evaluation Re-evalutation: 10/06/20 13:52 Patient's total CK is not elevated. History is consistent with this being muscle pain from excessive use of the shoulders and heavy lifting without having been physically conditioned prior to starting the job. - Vital Signs Vital signs: Temp Pulse Resp BP Pulse Ox 98.2 F 76 18 130/82 H 100 10/06/20 14:39 10/06/20 14:39 10/06/20 14:39 10/06/20 14:39 10/06/20 11:29 - Laboratory Results Result Diagrams: 10/06/20 12:30 10/06/20 12:30 Laboratory Results Interpreted: 10/06/20 10/06/20 12:30 12:30 WBC 3.4 L Hgb 10.8 L Hct 32.1 L MCV 77 L MCH 25.8 L RDW 17.5 H Plt Count 145 L Lymph % (Auto) 48.8 H Baso % (Auto) 2.2 H Absolute Neuts (auto) 1.2 L Seg Neutrophils % 36.7 L Chloride 108 H Anion Gap 4 L Critical Laboratory Results Reviewed: No Critical Results - Radiology Results Critical Radiology Results Reviewed: No Critical Results Discharge - Discharge Clinical Impression: Bilateral shoulder pain Qualifiers: Chronicity: acute Qualified Code(s): M25.511 - Pain in right shoulder Overuse syndrome of shoulder Qualifiers: Encounter type: initial encounter Laterality: unspecified laterality Qualified Code(s): S46.919A - Strain of unspecified muscle, fascia and tendon at shoulder and upper arm level, unspecified arm, initial encounter Condition: Stable Disposition: HOME, SELF-CARE Additional Instructions: Overuse Syndrome Overuse syndrome or repetitive-motion syndrome is inflammation caused by repeated activity. Many daily activities cause minor, microscopic injury to muscles, tendons, and ligaments. With adequate rest, the tissues repair themselves. But sometimes a repetitive movement or new activity is too much for the tissue to tolerate, and inflammation results. Examples of overuse syndrome are tendonitis, bursitis, muscle inflammation, and joint capsulitis. Rest. Stop or decrease the activity that created the problem. You may need a sling or splint. For the first couple of days after symptoms begin, ice packs can be helpful. When the symptoms start improving, you can switch to hot packs followed by stretching and motion of the painful area. Antiinflammatory medicine such as ibuprofen can help. Call the doctor or return if there is fever, increasing pain, spreading redness, numbness, weakness, or other significant change. 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 The only way those muscles will stop hurting is with adequate rest to allow the injured tissue to heal. Ibuprofen or Aleve frequently helps the discomfort. Ice packs at the end of the day after overuse also help. You may have to take several days to weeks off from work in order to let the muscles heal. Follow-up with a local medical doctor if you do not improve. RETURN TO THE EMERGENCY ROOM IF ANY NEW OR WORSENING SYMPTOMS. Forms: Special Work Note, Return to Work Referrals: LOCALMD,NO [NO LOCAL MD] - Follow up as needed I personally performed the services described in the documentation, reviewed and edited the documentation which was dictated to the scribe in my presence, and it accurately records my words and actions.
[2020-10-06 12:45] LABS: ABSOLUTE BASOPHILS # (AUTO) 0.1 10^3/uL (0.0-0.2); ABSOLUTE EOSINOPHILS # (AUTO) 0.1 10^3/uL (0.0-0.6); ABSOLUTE LYMPHOCYTES (AUTO) 1.7 10^3/uL (0.5-4.7); ABSOLUTE MONOCYTES (AUTO) 0.3 10^3/uL (0.1-1.4); ABSOLUTE NEUT (AUTO) 1.2 10^3/uL (1.7-8.2); BASOPHILS % (AUTO) 2.2 % (0-2); EOSINOPHILS % (AUTO) 2.6 % (0-6); HEMATOCRIT 32.1 % (36.0-47.0); HEMOGLOBIN 10.8 g/dL (12.0-15.5); LYMPHOCYTES % (AUTO) 48.8 % (13-45); MEAN CORPUSCULAR HEMOGLOBIN 25.8 pg (27.0-33.4); MEAN CORPUSCULAR HGB CONC 33.5 g/dL (32.0-36.0); MEAN CORPUSCULAR VOLUME 77 fl (80-97); MONOCYTES % (AUTO) 9.7 % (3-13); PLATELET COUNT 145 10^3/uL (150-450); RED BLOOD COUNT 4.19 10^6/uL (3.72-5.28); RED CELL DISTRIBUTION WIDTH 17.5 % (11.5-14.0); SEGMENTED NEUTROPHILS % (AUTO) 36.7 % (42-78); TOTAL CELLS COUNTED % (AUTO) 100 %; WHITE BLOOD COUNT 3.4 10^3/uL (4.0-10.5)
[2020-10-06 13:10] LABS: ALBUMIN 3.5 g/dL (3.5-5.0); ALKALINE PHOSPHATASE 67 U/L (38-126); ASPARTATE AMINO TRANSFERASE 18 U/L (14-36); BILIRUBIN,DIRECT 0.3 mg/dL (0.0-0.4); BILIRUBIN,TOTAL 0.4 mg/dL (0.2-1.3); BLOOD UREA NITROGEN 7 mg/dL (7-20); CALCIUM 8.8 mg/dL (8.4-10.2); CARBON DIOXIDE 26 mmol/L (22-30); CREATINE KINASE 120 U/L (30-135); GLUCOSE 96 mg/dL (75-110); POTASSIUM 4.3 mmol/L (3.6-5.0); TOTAL PROTEIN 6.9 g/dL (6.3-8.2)
[2020-10-06 13:15] LABS: CHLORIDE 108 mmol/L (98-107)
[2020-10-06 13:17] LABS: ANION GAP 4 (5-19)
[2020-10-06 14:31] LABS: APPEARANCE,URINE SLIGHTLY-CLOUDY; BILIRUBIN,URINE NEGATIVE (NEGATIVE); COLOR,URINE YELLOW; GLUCOSE, URINE NEGATIVE (NEGATIVE); KETONES,URINE NEGATIVE (NEGATIVE); LEUKOCYTE ESTERASE,URINE NEGATIVE (NEGATIVE); NITRITE,URINE NEGATIVE (NEGATIVE); PROTEIN,URINE NEGATIVE (NEGATIVE); URINE SPECIFIC GRAVITY 1.014; UROBILINOGEN,URINE NEGATIVE mg/dL (<2.0)
[2020-10-06 14:41] VITALS: BP 130/82
== END 2020-10-06 14:39 | disposition home or self-care (01) ==
LOC: ER 11:26
DX: S46.919A Strain of unspecified muscle, fascia and tendon at shoulder and upper arm level, unspecified arm, initial encounter (principal); M25.511 Pain in right shoulder; M25.512 Pain in left shoulder; X50.0XXA Overexertion from strenuous movement or load, initial encounter; Y92.89 Other specified places as the place of occurrence of the external cause; Y99.0 Civilian activity done for income or pay; F17.200 Nicotine dependence, unspecified, uncomplicated
CPT/HCPCS: 36415; 80053; 81001; 82550; 84703; 85025; 99283